=== PATIENT | female | born 1980 | race Caucasian/White ===

== ENCOUNTER 2025-07-02 09:25 | Day surgery (SDC) | payer OTHER ==
[2025-07-02] VITALS (16 sets, daily range): BP systolic 87–113; BP diastolic 47–98
[~2025-07-02] VITALS: Ht 162.6 cm; Wt 52.0 kg
[~2025-07-02 09:25] MED LIST: LYLLANA; PROG100
--- NOTE | 2025-07-02 10:47 | NUR ---
History, Chart, Medications and Allergies reviewed before start of procedure. Patient confirms NPO status and agrees with scheduled surgery. Pre-Op teaching done. Pt verbalizes understanding. Patient states colon prep results clear. Lungs clear T/O to Auscultation.
--- NOTE | 2025-07-02 11:18 | NUR ---
07/02/25 1118 Alicia Decker CONFIRMED AND REVIEWED H&P, MEDCICATIONS, ALLERGIES, MEDICAL HISTORY, RESPIRATORY HISTORY, VITAL SIGNS, 3-LEAD EKG, CONSENTS, AND PHYSICIAN ORDERS. PATIENT CONFIRMS NPO STATUS AND AGREES WITH SCHEDULED PROCEDURE. MONITOR INTACT WITH CONTINUOUS PULSE OXIMETRY, CAPNOGRAPHY, 3-LEAD EKG, INTERMITTENT BP. SUPPLEMENTAL O2 TO BE TITRATED THROUGHOUT PROCEDURE TO MAINTAIN O2 SATURATION ABOVE 90%. PATIENT DETERMINED TO BE ASA APPROPRIATE FOR PROPOFOL SEDATION PRIOR TO START OF PROCEDURE BY DR. SIMS
--- NOTE | 2025-07-02 12:03 | NUR ---
Patient up to Ambulate independently. Gait steady. Discharge instructions reviewed with patient. Patient verbalizes understanding. Copy given to patient to take home. Patient States Post-Procedure ride home has been arranged. Discharged via wheelchair to private car for ride home.ALL BELONINGS SENT HOME WITH PATIENT.
== END 2025-07-02 23:00 | disposition home or self-care (01) ==
LOC: ORSCMMR 09:25 → ORD 11:00 → ORSCMMR 23:00
PROVIDERS: Surgery
PROC: 0DBL8ZX Excision of Transverse Colon, Via Natural or Artificial Opening Endoscopic, Diagnostic (ICD-10-PCS; principal; 2025-07-02 11:00)
DX: K92.1 Melena (principal); D12.3 Benign neoplasm of transverse colon; K64.2 Third degree hemorrhoids; R19.7 Diarrhea, unspecified; Z87.891 Personal history of nicotine dependence
CPT/HCPCS: 88305; J2704; J7120